=== PATIENT | female | born 1935 | race Caucasian/White ===

== ENCOUNTER 2023-06-10 10:15 | Day surgery (SDC) | payer OTHER, SELFPAY ==
--- NOTE | 2023-06-10 08:11 | ITS.CL.PACE ---
[employer] - Pacemaker Implant
Pacemaker Implant
Procedure Report:
PACEMAKER IMPLANT REPORT
Primary Care Provider: Dr Graciela Ojeda
Primary recycle coordinator: Dr Willam Casillas
Date of Procedure: June 10, 2023
Procedure:
Implantation of dual-chamber permanent pacemaker utilizing the left bundle branch for conduction system pacing
Indication/Diagnosis:
Non-reversible symptomatic (lightheadedness and fatigue) bradycardia due to second atrioventricular block and heart rates down into the 20s.
Echo from 2023 reveals normal EF% 55 without significant valvular disease
After informed consent was obtained, 'time out' was called and confirmed, the patient was prepped and draped in a sterile fashion. Lidocaine with epi was used for local anesthesia. Central venous access was obtained via subclavian venipuncture. An
incision was made along the right chest and a pre-pectoral pocket was formed. Using a Seldinger technique and peel-away sheaths, the pacing leads were placed under fluoroscopic guidance.
Fluoroscopy was used to determine likely anatomic site for left bundle branch pacing. The Medtronic C315 sheath was used to deliver the Medtronic 3830 Selectsecure pacing lead with the helix exposed just exposed from the sheath tip during continuous
monitoring when pacemapping the septum during gentle clockwise rotation to obtain a paced QRS morphology of a W pattern in lead V1. Once the suspected optimal site was identified, lead deployment was performed with several rapid rotations as paced
QRS morphology was intermittently monitored until a paced QRS complex in lead V1 demonstrated development of an R wave (QR).
Unipolar pacing impedance dropped by approximately 200 ohms suggesting it had reached the left ventricular subendocardial.
Stable VEgm injury current is present throughout lead position and at end of case.
Final unipolar pacing impedance is 1150 Ohms
Unipolar pacing threshold is stable at 0.75 V @ 0.4 ms.
The patient had pre-existing narrow QRS
Final conduction system paced QRS complex duration is 106 ms
LVAT is 47 ms and peak V5 -> peak V1 timing is 61 ms
Right atrial lead was placed at the RAA.
Once testing (see below) showed adequate and stable function, the leads were secured using the suture sleeves. The pocket was liberally irrigated with antibiotic solution. The leads were connected to the generator header and the leads and
generator were placed within the pocket. Fluoroscopy confirmed stable lead position. The pocket was closed in the typical fashion.
Fluoroscopy was used to guide lead placement. Fluoroscopic exposure 6 min and 13.65 mGy
IMPLANTS:
Medtronic [id number], SN: [id number], Left Pectoral
RA: Medtronic 5076-45, SN: [id number], RAA
RV: Medtronic 3830 , SN:[id number], Interventricular septum at LBB
DEVICE TESTING:
Sensing: RA 2.25 mV, RV 7.6 mV
Capture: RA 0.875 V@0.4ms, RV 0.75 V@0.4ms
Ohms: RA 551, RV 1102 (bipolar)
FINAL PROGRAMMING
Bob Pacing: DDDR 60-130 ppm
COMPLICATIONS:
None
CONCLUSIONS:
1: Successful implant of dual chamber permanent pacemaker utilizing Left Bundle Branch conduction system capture pacing.
RECOMMENDATIONS:
1. Post-op care (tele, CXR, IV abx)
2. In-Office wound check in 5-7 days
Copy to:
Dr Graciela Ojeda
Dr Willam Casillas
[2023-06-10 10:45] VITALS: BP 129/55
[2023-06-10 11:01] VITALS: BP 129/55
[2023-06-10 11:05] LABS: Hematocrit 37.1 % (37.0-47.0); Hemoglobin 12.3 g/dL (12.0-16.0); Mean Corp Hgb Conc. 33.2 g/dL (33.0-37.0); Mean Corpuscular Hgb 29.9 pg (27.0-31.0); Mean Corpuscular Volume 90.3 fL (81.0-99.0); Platelet Count 236 10^3/uL (130-400); Red Blood Cell Count 4.11 10^6/uL (4.20-5.40); Red Cell Dist. Width 13.4 % (11.5-14.5); White Blood Cell Count 7.6 10^3/uL (4.8-10.8)
[2023-06-10 12:10] LABS: ALT (SGPT) 21 U/L (0-35); AST (SGOT) 27 U/L (14-36); Albumin 3.7 g/dl (3.5-5.0); Alkaline Phosphatase 72 U/L (38-126); Blood Urea Nitrogen 22 mg/dl (7-17); Calcium 9.2 mg/dl (8.4-10.2); Carbon Dioxide 23 mmol/L (22-30); Chloride 108 mmol/L (98-107); Glucose 91 mg/dl (70-99); Potassium 4.4 mmol/L (3.5-5.1); Sodium 137 mmol/L (135-145); Total Bilirubin 0.8 mg/dl (0.2-1.3); Total Protein 6.3 g/dl (6.3-8.2); eGFR 54.87
[2023-06-10 15:31] VITALS: BP 123/69
--- NOTE | 2023-06-10 15:35 | PTCARENOTE ---
Received pt from recovery area. Right arm immobilizer and dressings CDI. Oriented pt to room and unit. Educated on expected OOB time. VSS. AOx3, no complaints of pain or discomfort. Call ellison within reach.
[2023-06-10 16:13] VITALS: BP 123/50
[2023-06-10 19:33] VITALS: BP 140/57
[2023-06-10] MEDS: ANCEF 5 IV (20:00)
[2023-06-10] MEDS: LIPITOR 40 MG PO (22:32)
[2023-06-10] MEDS: PROTONIX 40 MG PO (22:32)
[2023-06-10] MEDS: LOW STRENGTH ASPIRIN 81 MG PO (22:33)
[2023-06-10] MEDS: BENICAR 40 MG PO (22:33)
[2023-06-10 22:38] VITALS: BP 124/54
[2023-06-10] MEDS: ATIVAN 0.5 MG PO (22:48)
[2023-06-10] MEDS: REQUIP 4 MG PO (22:48)
--- NOTE | 2023-06-11 00:05 | PTCARENOTE ---
Pt received at start of shift, HR AV-paced w/ occasional only V-pacing 60s-70s. Pacer insertion site dressing CDI. Pt ambulated to bathroom with help of RN. Educated pt on nature of Fall Risk due to her having fallen in the past 3 months. Pt states
understanding. Pt educated on activity restrictions related to pacer insertion and R upper extremity. Pt states understanding. Pt denies any CP, SOB, or lightheadedness/dizziness at this time. Informed to notify RN if any changes, call ellison within
reach.
[2023-06-11 03:08] VITALS: BP 139/54
[2023-06-11] MEDS: ANCEF 5 IV (03:23)
[2023-06-11 04:00] LABS: Hematocrit 33.3 % (37.0-47.0); Hemoglobin 11.3 g/dL (12.0-16.0); Mean Corp Hgb Conc. 33.9 g/dL (33.0-37.0); Mean Corpuscular Volume 88.3 fL (81.0-99.0); Mean Platelet Volume 9.8 fL (7.4-10.4); Platelet Count 204 10^3/uL (130-400); Red Blood Cell Count 3.77 10^6/uL (4.20-5.40); Red Cell Dist. Width 13.4 % (11.5-14.5); White Blood Cell Count 8.8 10^3/uL (4.8-10.8)
[2023-06-11 04:24] LABS: Blood Urea Nitrogen 20 mg/dl (7-17); Calcium 9.4 mg/dl (8.4-10.2); Carbon Dioxide 24 mmol/L (22-30); Chloride 104 mmol/L (98-107); Glucose 94 mg/dl (70-99); Potassium 4.6 mmol/L (3.5-5.1); Sodium 136 mmol/L (135-145); eGFR > 60.00
[2023-06-11] MEDS: KCL 10 MEQ PO (06:45)
[2023-06-11 07:28] VITALS: BP 139/71
--- NOTE | 2023-06-11 08:11 | W.PN.CARDCBS ---
Addendum entered and electronically signed by Tanner Infante MD 06/11/23 10:08:
Patient seen and examined
Agree with JAVASCRIPT FRONT END DEVELOPER note and assessment
Agree with JAVASCRIPT FRONT END DEVELOPER plan
Examination:
Site clean dry intact on the right
Chest x-ray reviewed
X-ray reviewed
ECG reviewed
Cor regular
No acute distress
Remainder of exam per JAVASCRIPT FRONT END DEVELOPER note
IMPRESSION:
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
CAD w/CABG x4 (2004)
HTN
Mod MR
Left BrCa, s/p lumpectomy/LND/XRT ()
PLAN:
Tele- V/AVpaced 60s
Post CXR w/stable lead position, no pneumothorax
activity limitations reviewed
device site stable
incision check next week at [facility] then routine followup at [facility].
home today
Original Note:
Today's Communication / Plan
-
incision check next week
home today
Impression / Plan
-
PCP: Graciela Ojeda MD
CDY: Willam Casillas MD
87 y/o, presents with symptomatic bradycardia, SSS, Mobitz type 1 Wenckebach. Outpt monitor revealed rates 40-130s with up to 3 second pauses and some brief NSVT. S/P dual chamber PPM implant.
IMPRESSION:
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
CAD w/CABG x4 (2004)
HTN
Mod MR
Left BrCa, s/p lumpectomy/LND/XRT ()
PLAN:
Tele- V/AVpaced 60s
Post CXR w/stable lead position, no pneumothorax
activity limitations reviewed
device site stable
incision check next week at [facility] then routine followup at [facility].
home today
Progress Note - Field Recorder
Subjective
Date of Service: June 11, 2023
Denies cp/palps/dyspnea
oob ambulating
incisional site without pain
Objective
Labs:
06/11/23 03:25
06/11/23 03:25
Labs
Hgb 11.3 g/dL (12.0-16.0) L 06/11/23 03:25
Hct 33.3 % (37.0-47.0) L 06/11/23 03:25
Plt Count 204 10^3/uL (130-400) 06/11/23 03:25
Sodium 136 mmol/L (135-145) 06/11/23 03:25
Potassium 4.6 mmol/L (3.5-5.1) 06/11/23 03:25
BUN 20 mg/dl (7-17) H 06/11/23 03:25
Creatinine 0.9 mg/dL (0.6-1.0) 06/11/23 03:25
Glucose 94 mg/dl (70-99) 06/11/23 03:25
Vital Signs and I&O:
Vital Signs
Temp Pulse Resp BP Pulse Ox
97.4 F 62 18 139/54 95
06/11/23 07:25 06/11/23 03:30 06/11/23 07:25 06/11/23 03:08 06/11/23 07:25
Vital Signs
Temp Pulse Resp BP Pulse Ox
97.4 F 62 18 139/54 95
06/11/23 07:25 06/11/23 03:30 06/11/23 07:25 06/11/23 03:08 06/11/23 07:25
Intake & Output
06/09/23 06/10/23 06/11/23 06/12/23
06:59 06:59 06:59 06:59
Intake Total 480 / 480
Balance 480 / 480
Physical Exam
Physical Exam
AAOx3, MAEE 5/5
RRR S1 S2 no murmurs
CTA bilat, non labored
right ACW w/aquacel dressing CDI, no ht/bleeding, non tender
soft abd, + bs
bilat extremities w/palpable distal pulses, no edema
[2023-06-11 09:07] VITALS: BP 142/93
[2023-06-11 09:08] VITALS: BP 142/93
--- NOTE | 2023-06-11 09:11 | W.DS.TRANS ---
DC Summary - Flying Teacher
-
Discharge Instructions:
Discharge Diagnosis/Procedures Pacemaker implant
Diet Low Cholesterol
Driving Restrictions No driving for 1 week
Instructions:
Stand-Alone Forms: DC Inst - Implanted Device
Changes to Home Medications: No
Discharge Medications:
DC Medications w/original date entered in [employer]
Balance Of Nature 2 % PO Daily 06/10/23
acetaminophen 650 mg tablet,extended release 1,300 mg PO BIDPRN PRN pain 06/10/23
ascorbic acid (vitamin C) 500 mg tablet (Vitamin C) 500 mg PO DAILY 06/10/23
aspirin 81 mg tablet 81 mg PO HS 06/10/23
atorvastatin 40 mg tablet 40 mg PO HS 06/10/23
cholecalciferol (vitamin D3) 25 mcg (1,000 unit) chewable tablet (Vitamin D3) 25 mcg PO DAILY 06/10/23
echinacea 167 mg tablet 167 mg PO DAILY 06/10/23
fexofenadine 180 mg tablet 180 mg PO DAILY 06/10/23
lorazepam 0.5 mg tablet 0.5 mg PO HSPRN PRN anxiety, sleep 06/10/23
magnesium 250 mg tablet 250 mg PO DAILY 06/10/23
olmesartan 40 mg tablet (Benicar) 40 mg PO HS 06/10/23
omeprazole 20 mg delayed release,disintegrating tablet 20 mg PO HS 06/10/23
potassium 99 mg tablet 99 mg PO DAILY AT 0700 06/10/23
ropinirole 1 mg tablet 3 mg PO DAILY 06/10/23
ropinirole 1 mg tablet 4 mg PO HS 06/10/23
vitamin B complex 1 tab PO DAILY 06/10/23
Home Medication Changes
Pending Results: No
[2023-06-11] MEDS: MAGNESIUM OXIDE 250 MG PO (09:12)
[2023-06-11] MEDS: CLARITIN 10 MG PO (09:12)
[2023-06-11] MEDS: REQUIP 3 MG PO (09:17)
[2023-06-11 10:45] VITALS: BP 144/69
--- NOTE | 2023-06-11 10:50 | CM ---
spoke to pt in room, she is prev indep, lives with her son/DIL in an in-law suite [address] she has a cane she uses. she denies any dc planning needs. plan is for dc to home today.
== END 2023-06-11 12:33 | disposition home or self-care (01) ==
LOC: CATH 10:15
PROVIDERS: Nurse Practitioner; ATTENDING PHYSICIAN Internal Medicine Cardiovascular Disease; FAMILY PHYSICIAN Family Medicine
DX: I44.1 Atrioventricular block, second degree (principal); I49.5 Sick sinus syndrome; R42 Dizziness and giddiness; R53.83 Other fatigue; I25.10 Atherosclerotic heart disease of native coronary artery without angina pectoris; Z95.1 Presence of aortocoronary bypass graft; I10 Essential (primary) hypertension; Z85.3 Personal history of malignant neoplasm of breast; Z92.3 Personal history of irradiation; I47.29 Other ventricular tachycardia; Z79.82 Long term (current) use of aspirin
CPT/HCPCS: 33208; 71045; 80048; 80053; 85027; 93005; C1785; C1892; C1898; Q9967